=== PATIENT | male | born 1970 | race Asian ===

== ENCOUNTER 2017-07-03 07:36 | Outpatient (CLI) | payer OTHER | END 2017-07-03 07:51 | disposition home or self-care (01) | LOC: LAB 07:36 | DX: E11.8 Type 2 diabetes mellitus with unspecified complications (principal); I10 Essential (primary) hypertension ==

== ENCOUNTER 2020-08-31 07:54 | Outpatient (CLI) | payer OTHER | END 2020-08-31 15:00 | disposition home or self-care (01) | LOC: LAB 07:54 | PROVIDERS: ATTEND General Practice | DX: I10 Essential (primary) hypertension (principal); E11.9 Type 2 diabetes mellitus without complications; N40.0 Benign prostatic hyperplasia without lower urinary tract symptoms ==

== ENCOUNTER 2024-07-02 10:44 | Outpatient (CLI) | payer OTHER ==
[2024-07-02 16:38] LABS: ALBUMIN 4.5 gm/dL (3.4-5.0); BILIRUBIN TOTAL 0.47 mg/dL (0.3-1.2); BILIRUBIN,CONJUGATED 0.13 mg/dL (0.0-0.2); BILIRUBIN,UNCONJUGATED 0.34 mg/dL (0.0-0.6); TOTAL PROTEIN 7.6 gm/dL (6.4-8.2)
== END 2024-07-02 11:08 | disposition home or self-care (01) ==
LOC: LAB 10:44
PROVIDERS: ATTEND General Practice
DX: K83.9 Disease of biliary tract, unspecified (principal); I10 Essential (primary) hypertension; E11.8 Type 2 diabetes mellitus with unspecified complications